=== PATIENT | female | born 1995 | race Caucasian/White ===

== ENCOUNTER 2017-10-14 14:15 | Emergency (ER) | payer SELFPAY ==
[2017-10-14] MEDS ORDERED: DIAZEPAM 5 MG TABLET PO ONE (14:45)
[2017-10-14] MEDS ORDERED: LOPERAMIDE HCL 2 MG CAPSULE PO ONE (14:53)
[2017-10-14] MEDS ORDERED: ONDANSETRON 4 MG TAB.RAPDIS PO ONE (14:53)
--- NOTE | 2017-10-14 15:15 | ER Document Report ---
ED General - General Chief Complaint: Nausea/Vomiting/Diarrhea Stated Complaint: ABDOMINAL PAIN,DIARRHEA Time Seen by Provider: 10/14/17 14:44 Mode of Arrival: Ambulatory Information source: Patient Notes: 22-year-old female with no reported past medical history presents with complaint of abdominal cramping and diarrhea that started 2 days prior to arrival. Abdominal cramping is described as intermittent, diffusely located. Patient has had 2 episodes of non-bloody nonblack diarrhea. Patient has associated nausea without vomiting. She denies sick contacts, recent antibiotic use, recent travel. Last menstrual period was October 02, 2017. Patient is currently sexually active with her and is unsure if she is . She denies any dysuria, vaginal discharge and vaginal bleeding. Patient has been one time which resulted in a miscarriage. TRAVEL OUTSIDE OF THE [place] IN LAST 30 DAYS: No - HPI Onset: Yesterday Onset/Duration: Gradual, Intermittent Quality of pain: Cramping Severity: Mild Associated symptoms: Diarrhea, Nausea. denies: Vomiting, Shortness of breath Exacerbated by: Food Relieved by: Denies Similar symptoms previously: No Recently seen / treated by doctor: No - Related Data Allergies/Adverse Reactions: No Known Allergies Allergy (Verified 10/14/17 14:42) Past Medical History - General Information source: Patient, [facility] Records - Social History Smoking Status: Current Every Day Smoker Cigarette use (# per day): Yes - 10 Chew tobacco use (# tins/day): No Smoking Education Provided: Yes - 4 minutes of smoking cessation provided Frequency of alcohol use: Rare Drug Abuse: None Lives with: Family Family History: Reviewed & Not Pertinent Patient has suicidal ideation: No Patient has homicidal ideation: No - Medical History Medical History: Negative Renal/ Medical History: Denies: Hx Peritoneal Dialysis Review of Systems - Review of Systems Notes: REVIEW OF SYSTEMS: CONSTITUTIONAL : Denies fever, chills, or sweats. Denies recent illness. Denies weight loss, recent hospitalizations. EENT: Denies visual changes, eye pain. Denies nasal or sinus congestion or discharge. Denies sore throat, oral lesions, difficulty swallowing. CARDIOVASCULAR: Denies chest pain. Denies palpitations. Denies lower extremity edema. RESPIRATORY: Denies cough, cold, or chest congestion. Denies shortness of breath, wheezing. GASTROINTESTINAL: Denies abdominal distention. Denies vomiting, Denies blood in vomitus, stools, or per rectum. Denies black, tarry stools. Denies constipation. GENITOURINARY: Denies difficulty urinating, painful urination, frequency, blood in urine, or vaginal discharge vaginal bleeding. MUSCULOSKELETAL: Denies back or neck pain or stiffness. Denies joint pain or swelling. SKIN: Denies rash, lesions or sores. HEMATOLOGIC : Denies easy bruising or bleeding. LYMPHATIC: Denies swollen glands. NEUROLOGICAL: Denies confusion or altered mental status. Denies passing out or loss of consciousness. Denies dizziness or lightheadedness. Denies headache. Denies weakness or paralysis. Denies problems difficulty with ambulation, slurred speech. Denies sensory loss, numbness, or tingling. Denies seizures. PSYCHIATRIC: Denies anxiety or stress. Denies depression, suicidal ideation, or homicidal ideation. Denies visual or auditory hallucinations. Physical Exam - Vital signs Vitals: Temp Pulse Resp BP Pulse Ox 97.9 F 82 18 138/76 H 100 10/14/17 14:21 10/14/17 14:21 10/14/17 14:21 10/14/17 14:21 10/14/17 14:21 - Notes Notes: PHYSICAL EXAMINATION: GENERAL: Well-appearing, well-nourished and in no acute distress. HEAD: Atraumatic, normocephalic. EYES: Pupils equal round and reactive to light, extraocular movements intact, conjunctiva are normal. ENT: Nares patent, oropharynx clear without exudates. Moist mucous membranes. NECK: Normal range of motion, supple without lymphadenopathy LUNGS: Breath sounds clear to auscultation bilaterally and equal. No wheezes rales or rhonchi. HEART: Regular rate and rhythm without murmurs ABDOMEN: Soft, nontender, nondistended abdomen. No guarding, no rebound. No masses appreciated. Female : deferred Musculoskeletal: Normal range of motion, no pitting or edema. No cyanosis. NEUROLOGICAL: Cranial nerves grossly intact. Normal speech, normal gait. Normal sensory, motor exams PSYCH: Normal mood, normal affect. SKIN: Warm, Dry, normal turgor, no rashes or lesions noted. Course - Re-evaluation Re-evalutation: 10/14/17 16:14 Laboratory 10/14/17 15:10 Urine HCG, Qual NEGATIVE 10/14/17 16:14 22-year-old female with no reported past medical history presents with complaint of abdominal cramping and diarrhea that started 2 days prior to arrival. Abdominal cramping is described as intermittent, diffusely located. Patient has had 2 episodes of non-bloody nonblack diarrhea. Patient has associated nausea without vomiting. She denies sick contacts, recent antibiotic use, recent travel. Last menstrual period was October 02, 2017. Patient is currently sexually active with her and is unsure if she is . She denies any dysuria, vaginal discharge and vaginal bleeding. Patient has been one time which resulted in a miscarriage. Patient was seen by myself upon arrival. Vital signs were reviewed. Patient is afebrile , normotensive and not hypoxic. Patient does not appear toxic or dehydrated. They are in no acute distress. Previous medical records and nursing notes reviewed. Patient has a benign abdominal exam. Patient was given Imodium and Zofran during her ED course. On reevaluation she states her nausea has resolved. Patient will be provided a prescription for Imodium and Zofran. HCG negative. Patient provided the opportunity to ask questions, and express concerns. Discharge instructions discussed. Patient is agreeable with discharge home. Return indications explained and discussed with the patient who displays understanding. Patient encouraged to return to the emergency department immediately with any concerns. - Vital Signs Vital signs: Temp Pulse Resp BP Pulse Ox 97.9 F 82 18 138/76 H 100 10/14/17 14:21 10/14/17 14:21 10/14/17 14:21 10/14/17 14:21 10/14/17 14:21 Discharge - Discharge Clinical Impression: Nausea, Abdominal cramping Diarrhea Qualifiers: Diarrhea type: unspecified type Qualified Code(s): R19.7 - Diarrhea, unspecified Condition: Good Disposition: HOME, SELF-CARE Instructions: Antinausea Medication ([facility]), Diarrhea, Nonspecific ([facility]) Additional Instructions: Follow up with your physician tomorrow for further care or return to the ED IMMEDIATELY if symptoms worsen or new concerns occur. If you cannot afford to follow up with your primary care physician a list of low cost clinics have been provided at the end of your discharge papers as well. Prescriptions: Loperamide HCl [Loperamide] 2 mg PO Q6H PRN #12 capsule PRN Reason: Diarrhea Ondansetron [Zofran Odt 4 mg Tablet] 1 - 2 tab PO Q4H PRN #15 tab.rapdis PRN Reason: For Nausea/Vomiting Forms: Smoking Cessation Education, Elevated Blood Pressure
[2017-10-14 16:16] VITALS: BP 110/66
== END 2017-10-14 16:15 | disposition home or self-care (01) ==
LOC: ER 14:15
DX: R11.2 Nausea with vomiting, unspecified (principal); R10.9 Unspecified abdominal pain; R19.7 Diarrhea, unspecified; F17.210 Nicotine dependence, cigarettes, uncomplicated
CPT/HCPCS: 99406; 99284; 81025; S0119

== ENCOUNTER → 2017-11-10 | Outpatient (CLI) | payer SELFPAY ==
[2017-11-12 19:45] LABS: CHLAM PCR NOT DETECTED (NOT DETECT); GON PCR NOT DETECTED (NOT DETECT)
== END ==
LOC: LAB 15:25
PROVIDERS: ATTEND Nurse Practitioner Family
DX: N91.2 Amenorrhea, unspecified (principal); R10.30 Lower abdominal pain, unspecified; R11.0 Nausea
CPT/HCPCS: 36415; 84703; 87491; 87591

== ENCOUNTER → 2018-01-04 | Outpatient (CLI) | payer OTHER ==
--- NOTE | 2018-01-04 19:33 | RADIOLOGY REPORT (SQ) ---
EXAM DESCRIPTION: KUB COMPLETED DATE/TIME: 01/04/2018 5:25 pm REASON FOR STUDY: GENERALIZED ABDOMINAL PAIN R10.84 GENERALIZED ABDOMINAL PAIN COMPARISON: None. NUMBER OF VIEWS: One view. TECHNIQUE: Supine radiographic image of the abdomen acquired. LIMITATIONS: None. FINDINGS: BOWEL GAS PATTERN: Normal bowel gas pattern. No dilated loops. CALCIFICATIONS: No suspicious calcifications. SOFT TISSUES: No gross mass or suggestion of organomegaly. HARDWARE: None in the abdomen. BONES: Spina bifida occulta at L5. OTHER: No other significant finding. IMPRESSION: Nonspecific abdomen. Spina bifida occulta. TECHNICAL DOCUMENTATION: JOB ID: [id number] [employer]- All Rights Reserved Reading location - IP/workstation name: [email or web address]
== END ==
LOC: OD 17:10
PROVIDERS: ATTEND Nurse Practitioner Family
DX: R10.84 Generalized abdominal pain (principal); Q05.9 Spina bifida, unspecified
CPT/HCPCS: 74018

== ENCOUNTER 2018-09-08 20:57 | Outpatient (CLI) | payer OTHER ==
[2018-09-08] MEDS ORDERED: RINGERS SOLUTION,LACTATED 1,000 ML IV PRN (21:42)
[2018-09-08] MEDS ORDERED: HYDROXYZINE PAMOATE 50 MG CAPSULE PO ONE (21:43)
[2018-09-08] MEDS ORDERED: HYDROXYZINE PAMOATE 50 MG CAPSULE ONE (21:48)
[2018-09-08 21:52] LABS: APPEARANCE,URINE CLEAR; BILIRUBIN,URINE NEGATIVE (NEGATIVE); COLOR,URINE YELLOW; GLUCOSE, URINE NEGATIVE (NEGATIVE); KETONES,URINE NEGATIVE (NEGATIVE); LEUKOCYTE ESTERASE,URINE LARGE (NEGATIVE); NITRITE,URINE POSITIVE (NEGATIVE); PROTEIN,URINE 30 mg/dL (NEGATIVE); URINE SPECIFIC GRAVITY 1.006; UROBILINOGEN,URINE NEGATIVE mg/dL (<2.0)
[2018-09-08 22:12] LABS: URINE AMPHETAMINES SCREEN NEGATIVE; URINE BARBITURATES SCREEN NEGATIVE; URINE COCAINE SCREEN NEGATIVE; URINE MARIJUANA (THC) SCREEN NEGATIVE; URINE METHADONE SCREEN NEGATIVE; URINE PHENCYCLIDINE SCREEN NEGATIVE
[2018-09-08 22:21] LABS: URINE BENZODIAZEPINES SCREEN NEGATIVE
[2018-09-08] MEDS ORDERED: ACETAMINOPHEN 325 MG TABLET PO ONE (22:39)
[2018-09-08] MEDS ORDERED: CEFTRIAXONE SODIUM 1,000 MG in DEXTROSE 5%-WATER 100 ML IV ONE (22:41)
[2018-09-08] MEDS ORDERED: ACETAMINOPHEN 325 MG TABLET ONE (22:45)
[2018-09-08] MEDS ORDERED: CEFTRIAXONE INJ 1000 MG VIAL ONE (22:45)
--- NOTE | 2018-09-08 22:52 | RADIOLOGY REPORT (SQ) ---
EXAM DESCRIPTION: US LIMITED COMPLETED DATE/TME: 09/08/2018 00:00 CLINICAL HISTORY: 23 years Female, cervical length 29w1d Comparison: None. TECHNIQUE/LIMITATION: Targeted OB sonogram for requested parameters only. FINDINGS: Single IUP Cardiac activity: 180-bpm. NADIA: 11.0-cm Placenta: Anterior. No demonstrated abruption or previa. Presentation: Vertex Cervical length: 3.8-cm. Closed appearance. IMPRESSION: Targeted OB sonogram for requested parameters
== END 2018-09-09 00:12 | disposition home or self-care (01) ==
LOC: LC 20:57
PROVIDERS: ATTEND Obstetrics & Gynecology
PROC: 4A1HXCZ Monitoring of Products of Conception, Cardiac Rate, External Approach (ICD-10-PCS; principal; 2018-09-08)
DX: O23.42 Unspecified infection of urinary tract in pregnancy, second trimester (principal); Z3A.29 29 weeks gestation of pregnancy
CPT/HCPCS: 87086; 81001; 80307; 76815; 59899; J0696; J7060

== ENCOUNTER 2018-10-22 17:06 | Outpatient (CLI) | payer OTHER ==
[2018-10-22 18:29] LABS: APPEARANCE,URINE CLEAR; BILIRUBIN,URINE NEGATIVE (NEGATIVE); COLOR,URINE YELLOW; GLUCOSE, URINE NEGATIVE (NEGATIVE); KETONES,URINE 20 mg/dL (NEGATIVE); LEUKOCYTE ESTERASE,URINE SMALL (NEGATIVE); NITRITE,URINE NEGATIVE (NEGATIVE); PROTEIN,URINE NEGATIVE (NEGATIVE); URINE SPECIFIC GRAVITY 1.012; UROBILINOGEN,URINE NEGATIVE mg/dL (<2.0)
[2018-10-22] MEDS ORDERED: RINGERS SOLUTION,LACTATED 1,000 ML IV PRN (18:31)
[2018-10-22] MEDS ORDERED: HYDROXYZINE PAMOATE 50 MG CAPSULE PO ONE (18:32)
[2018-10-22 18:52] LABS: URINE AMPHETAMINES SCREEN NEGATIVE; URINE BARBITURATES SCREEN NEGATIVE; URINE BENZODIAZEPINES SCREEN NEGATIVE; URINE COCAINE SCREEN NEGATIVE; URINE MARIJUANA (THC) SCREEN NEGATIVE; URINE METHADONE SCREEN NEGATIVE; URINE PHENCYCLIDINE SCREEN NEGATIVE
[2018-10-22] MEDS ORDERED: HYDROXYZINE PAMOATE 50 MG CAPSULE ONE (19:15)
--- NOTE | 2018-10-22 19:55 | Non Stress Test Report ---
Non Stress Test Datetime Report Generated by CPN: 10/22/2018 19:54 DEMOGRAPHIC EGA NST: 35.3 INDICATION Indication for Study: Other Indication for Study (NST) Other: LABOR CHECK MONITORING Monitor Explained: Monitor Explained; Test Explained; Patient Verbalized Understanding Time on Monitor: 10/22/2018 17:33 Time off Monitor: 10/22/2018 19:40 NST Duration: 127 NST INTERVENTIONS NST Interventions: PO Hydration; Reposition Patient Physician Notified NST: Dr. Emil BABY A: [id number] BABY A Movement : Present Contraction Frequency : irritibility FHR Baseline : 145 Accelerations : 15X15 Decelerations : None Variability : Moderate 6-25bpm NST Review: Meets Criteria for Reactive NST NST Review and Verified By : KIM Hernandez Results: Reactive NST REPORT Report Trigger: Send Report
== END 2018-10-22 19:51 | disposition home or self-care (01) ==
LOC: LC 17:06
PROVIDERS: ATTEND Obstetrics & Gynecology
PROC: 4A1HXCZ Monitoring of Products of Conception, Cardiac Rate, External Approach (ICD-10-PCS; principal; 2018-10-22)
DX: O47.03 False labor before 37 completed weeks of gestation, third trimester (principal); Z3A.35 35 weeks gestation of pregnancy
CPT/HCPCS: 59025; 80307; 81001

== ENCOUNTER 2018-10-28 21:14 | Outpatient (CLI) | payer OTHER ==
[2018-10-28 22:13] LABS: APPEARANCE,URINE CLEAR; BILIRUBIN,URINE NEGATIVE (NEGATIVE); COLOR,URINE YELLOW; GLUCOSE, URINE NEGATIVE (NEGATIVE); KETONES,URINE NEGATIVE (NEGATIVE); LEUKOCYTE ESTERASE,URINE MODERATE (NEGATIVE); NITRITE,URINE NEGATIVE (NEGATIVE); PROTEIN,URINE NEGATIVE (NEGATIVE); URINE SPECIFIC GRAVITY 1.008; UROBILINOGEN,URINE NEGATIVE mg/dL (<2.0)
[2018-10-28 22:29] LABS: URINE AMPHETAMINES SCREEN NEGATIVE; URINE BARBITURATES SCREEN NEGATIVE; URINE BENZODIAZEPINES SCREEN NEGATIVE; URINE COCAINE SCREEN NEGATIVE; URINE MARIJUANA (THC) SCREEN NEGATIVE; URINE METHADONE SCREEN NEGATIVE; URINE PHENCYCLIDINE SCREEN NEGATIVE
--- NOTE | 2018-10-28 22:39 | Non Stress Test Report ---
Non Stress Test Datetime Report Generated by CPN: 10/28/2018 22:39 DEMOGRAPHIC EGA NST: 36.2 MONITORING Monitor Explained: Monitor Explained; Test Explained; Patient Verbalized Understanding Time on Monitor: 10/28/2018 21:38 Time off Monitor: 10/28/2018 22:26 NST Duration: 48 NST INTERVENTIONS NST Interventions: None Physician Notified NST: Dr. Acevedo BABY A: [id number] BABY A Movement : Present Contraction Frequency : irregular FHR Baseline : 140 Accelerations : 15X15 Decelerations : None Variability : Moderate 6-25bpm NST Review: Meets Criteria for Reactive NST NST Review and Verified By : Barry Prado RN NST Results: Reactive NST REPORT Report Trigger: Send Report
== END 2018-10-28 22:32 | disposition home or self-care (01) ==
LOC: LC 21:14
PROVIDERS: ATTEND Obstetrics & Gynecology
PROC: 4A1HXCZ Monitoring of Products of Conception, Cardiac Rate, External Approach (ICD-10-PCS; principal; 2018-10-28)
DX: O47.03 False labor before 37 completed weeks of gestation, third trimester (principal); Z3A.36 36 weeks gestation of pregnancy
CPT/HCPCS: 59025; 80307; 81001

== ENCOUNTER 2018-11-14 10:54 | Inpatient (IN) | payer OTHER ==
[2018-11-14] MEDS ORDERED: OXYTOCIN 10 UNIT/ML VIAL ONE (11:14)
[2018-11-14] MEDS ORDERED: LIDOCAINE 1% INJ-PF (10 MG/ML) 30 ML SDV ONE (11:14)
[2018-11-14] MEDS ORDERED: OXYTOCIN/NORMAL SALINE 20 UNIT/1,000 ML RTUINJ ONE (11:14)
[2018-11-14] MEDS ORDERED: MISOPROSTOL 0.2 MG TABLET ONE (11:14)
--- NOTE | 2018-11-14 11:25 | Admission Physical ---
Datetime Report Generated by CPN: 11/14/2018 11:24 CURRENT ADMISSION Chief Complaint: Suspected Ruptured Membranes Indication for Induction: Not Applicable Admit Impression : Term, Intrauterine ; Active Labor; Ruptured Membranes Admit Impression- Other: SROM at [facility] Admit Plan: Admit to Unit; Initiate Labor Protocol ALLERGIES Medication Allergies: No Medication Allergies: No Known Allergies (10/22/2018) OBSTETRICAL HISTORY EDC: 11/23/2018 00:00 : 2 Para: 0 Term: 0 : 0 SAB: 1 IAB: 0 Livin Cesareans: 0 PHYSICAL EXAM General: Normal HEENT: Normal Neurologic: Normal Thyroid: Deferred Heart: Normal Lungs: Normal Breast: Deferred Back: Normal Abdomen: Normal Genitourinary Exam: Normal Extremities: Normal DTRs: Normal Pelvic Type: Adequate Vital Signs: Reviewed; Within Normal Limits MEMBRANES Membranes: Ruptured FETUS A EGA: 38.5 Monitoring: External US FHR- Baseline: 150 Variability: Moderate 6-25bpm Accelerations: 15X15 FHR Category: Category I Presentation: Vertex Admit Comment: Late onset care at 20 wks. Hx asthma Anxiety, depression, panic attacks Snapping hip syndrome, right hip GDM-on Glyburide High weight gain-60lbs Antepartum records available INFORMED CONSENT Assignment: Sage Sauer MD Signature: with User ID: Lillie : with User ID: [email or web address] : I personally evaluated and examined the patient in conjunction with the MLP and agree with the assessment, treatment plan and disposition.
[2018-11-14] MEDS ORDERED: PROMETHAZINE HCL INJ 25 MG/1 ML VIAL ONE (11:56)
[2018-11-14] MEDS ORDERED: NALBUPHINE HCL INJ 10 MG/1 ML AMPULE ONE (11:56)
[2018-11-14] MEDS ORDERED: RINGERS SOLUTION,LACTATED 1,000 ML IV ONE (13:17)
[2018-11-14] MEDS ORDERED: RINGERS SOLUTION,LACTATED 1,000 ML IV PRN (13:17)
[2018-11-14 13:41] LABS: ABSOLUTE MONOCYTES (AUTO) 0.5 10^3/uL (0.1-1.4); ABSOLUTE NEUT (AUTO) 8.1 10^3/uL (1.7-8.2); BASOPHILS % (AUTO) 0.3 % (0-2); EOSINOPHILS % (AUTO) 0.2 % (0-6); HEMOGLOBIN 10.2 g/dL (12.0-15.5); LYMPHOCYTES % (AUTO) 18.5 % (13-45); MEAN CORPUSCULAR HEMOGLOBIN 25.2 pg (27.0-33.4); MEAN CORPUSCULAR HGB CONC 32.8 g/dL (32.0-36.0); MEAN CORPUSCULAR VOLUME 77 fl (80-97); PLATELET COUNT 173 10^3/uL (150-450); RED BLOOD COUNT 4.03 10^6/uL (3.72-5.28); RED CELL DISTRIBUTION WIDTH 14.7 % (11.5-14.0); TOTAL CELLS COUNTED % (AUTO) 100 %; WHITE BLOOD COUNT 10.6 10^3/uL (4.0-10.5)
[2018-11-14] MEDS ORDERED: ZOLPIDEM TARTRATE 5 MG TABLET PO PRN (17:01)
[2018-11-14] MEDS ORDERED: DIPHENHYDRAMINE HCL 25 MG CAPSULE PO PRN (17:01)
[2018-11-14] MEDS ORDERED: ACETAMINOPHEN 650 MG SUPP.RECT PR PRN (17:01)
[2018-11-14] MEDS ORDERED: GLYCERIN/WITCH HAZEL LEAF 1 EACH MED..WIPE TP PRN (17:01)
[2018-11-14] MEDS ORDERED: BENZOCAINE/MENTHOL AEROSOL SPRAY 56 ML TOP PRN (17:01)
[2018-11-14] MEDS ORDERED: NA PHOS,M-B/NA PHOS,DI-BA (ADULT) 133 ML ENEMA PR PRN (17:01)
[2018-11-14] MEDS ORDERED: PROMETHAZINE HCL 25 MG SUPP.RECT PR PRN (17:01)
[2018-11-14] MEDS ORDERED: MAGNESIUM HYDROXIDE SUSP 30 ML UDCUP PO PRN (17:01)
[2018-11-14] MEDS ORDERED: ACETAMINOPHEN WITH CODEINE #3 TABLET PO PRN ×2 (17:01)
[2018-11-14] MEDS ORDERED: PROMETHAZINE HCL INJ 25 MG/1 ML VIAL IV PRN (17:01)
[2018-11-14] MEDS ORDERED: MEASLES,MUMPS&RUBELLA VACC/PF 0.5 ML VIAL SUBCUT PRN (17:01)
[2018-11-14] MEDS ORDERED: DIPH/PERTUSS(ACELL)/TETANUS VAC/PF 0.5 ML SYR (>=10YO) IM PRN (17:01)
[2018-11-14] MEDS ORDERED: DIBUCAINE 1% OINTMENT 56 GM TP PRN (17:01)
[2018-11-14] MEDS ORDERED: PSEUDOEPHEDRINE HCL 30 MG TABLET PO PRN (17:01)
[2018-11-14] MEDS ORDERED: OXYTOCIN/NORMAL SALINE 20 UNIT/1,000 ML RTUINJ IV PRN (17:01)
[2018-11-14] MEDS ORDERED: PROMETHAZINE HCL 25 MG TABLET PO PRN (17:01)
--- NOTE | 2018-11-14 17:47 | Delivery Summary ---
Del Sum A-C Datetime Report Generated by CPN: 11/14/2018 17:46 DELIVERY PERSONNEL DELIVERY PERSONNEL: [id number] Delivery Doctor:: Gloria Camilo CNM Labor and Delivery Nurse:: Myah Moore RN Labor and Delivery Nurse:: Abby Piedra RN Tax Services Manager:: Rosalie Hennessy RN Spinning Frame Changer/CARDIOVASCULAR SONOGRAPHER: Jessica Tong CNA II Spinning Frame Changer/CARDIOVASCULAR SONOGRAPHER: Antony Jacobson, CORE SHAPER TOP Additional Personnel: : Jimmy Junior RN MATERNAL INFORMATION Delivery Anesthesia: None Medications After Delivery: Pitocin Bolus-Please Comment Meds After Delivery Comment: Pitocin 20 units/1000 ml NSS Delivery QBL Comment: 150 Complication Details: due to delivery at same time Dr. Sauer came in to deliver placenta Provider Comments: Called to room 8 for delivery. Vertex at perineum. Slight molding. Poor pushing effort. of vertex, then 2 min 15 sec of shoulder dystocia, with full delivery of body at 1603. Very poor maternal effort w pushing. Quan, attempt to rotate shoulders, and suprapubic pressure used to facilitate delivery. Baby made 1 weak cry. Cord clamped and cut by CNM, then placed in warmer-nursery staff present to stimulate and dry baby. CNM left room to do delivery in Room 2. Dr Sauer arrived and delivered placenta per his verbal report. Perineum intact per his report. LABOR SUMMARY EDC: 11/23/2018 00:00 No. Babies in Womb: 1 Attempted: No Labor Anesthesia: None LABOR INFORMATION Reason for Induction: Not Applicable Onset of Labor: 11/14/2018 11:31 Complete Dilatation: 11/14/2018 15:33 Oxytocin: N/A Group B Beta Strep: negative Antibiotics # of Doses: 0 Steroids Given: None Reason Steroids Not Administered: Not Applicable MEMBRANES Membranes Rupture Method: Spontaneous Rupture of Membranes: 11/14/2018 10:00 Length of Rupture (hr): 5.75 Amniotic Fluid Color: Clear Amniotic Fluid Amount: Small Amniotic Fluid Odor: Normal STAGES OF LABOR Stage 1 hr: 4 Stage 1 min: 2 Stage 2 hr: 0 Stage 2 min: 12 Stage 3 hr: 0 Stage 3 min: 18 Total Time in Labor hr: 4 Total Time in Labor min: 32 VAGINAL DELIVERY Episiotomy: None Laceration #1: None Laceration Extension #1: N/A Laceration Repair: Not Applicable Sponge Count Correct: N/A CSECTION DELIVERY Primary Indication: N/A Secondary Indication: N/A BABY A INFORMATION Delivery Date/Time: 11/14/2018 15:45 Method of Delivery: Vaginal Born in Route : No : N/A Forceps: N/A Vacuum Extraction: N/A Shoulder Dystocia : Yes SHOULDER DYSTOCIA BABY A Delivery of Head: 11/14/2018 15:43 Time Head to Delivery : 2.0 1st Intervention to Resolve: Gentle Attempt at Traction, Assisted by Maternal Expulsive Efforts 2nd Intervention to Resolve: McRobert's Maneuver 3rd Intervention to Resolve: Suprapubic Pressure Arm Under Symphisis at Del: Left PRESENTATION/POSITION BABY A Presentation: Cephalic Cephalic Presentation: N/A Vertex Position: Right Occipital Anterior Breech Presentation: N/A PLACENTA INFORMATION BABY A Placenta Delivery Time : 11/14/2018 16:03 Placenta Method of Delivery: Spontaneous Placenta Status: Delivered SCORES BABY A Heart Rate 1 min: >100 bpm Resp Effort 1 min: Slow, Irregular Reflex Irritability 1 min: Grimace Muscle Tone 1 min: Flaccid Color 1 min: Blue/Pale SCORE 1 MIN: 4 Heart Rate 5 min: >100 bpm Resp Effort 5 min: Slow, Irregular Reflex Irritability 5 min: Grimace Muscle Tone 5 min: Some Flexion of Extremities Color 5 min: Body [place], Extremities Blue Resuscitation Effort 5 min: Tactile Stimulation; Oxygen; PPV/NCPAP SCORE 5 MIN: 6 Heart Rate 10 min: >100 bpm Resp Effort 10 min: Good Cry Reflex Irritability 10 min: Cough or Sneeze or Pulls Away Muscle Tone 10 min: Some Flexion of Extremities Color 10 min: Body [place], Extremities Blue SCORE 10 MIN: 8 INFORMATION BABY A Gestational Age at Delivery: 38.5 Gestational Status: Early Term- 37- 38.6 Weeks Infant Outcome : Liveborn Infant Condition : Fair Infant Sex: Female IDENTIFICATION BABY A Infant Verification Date/Time: 11/14/2018 15:58 ID Band Number: [id number] Mother's Name Verified: Yes RN Verifying Infant: , RN and Chelle, RN WEIGHT/LENGTH BABY A Birthweight (gm): 3949 Weight (lb): 8 Infant Weight (oz): 11 Infant Length (in): 21.50 Length (cm): 54.61 CORD INFORMATION BABY A No. Cord Vessels: 3 Nuchal Cord : N/A Cord Blood Taken: Yes-For Storage (Mom's Blood type +) ASSESSMENT BABY A Skin to Skin: No SIGNATURES Assignment: Sage Sauer MD Signature: with User ID: Lillie : with User ID: Lillie : I personally evaluated and examined the patient in conjunction with the MLP and agree with the assessment, treatment plan and disposition.
[2018-11-14] MEDS: DOCUSATE SODIUM 100 MG CAPSULE PO SCH (19:04)
[2018-11-14] MEDS: FERROUS SULFATE 325 MG TABLET PO SCH (19:04)
[2018-11-14] MEDS: IBUPROFEN 800 MG TABLET PO SCH (21:51)
[2018-11-14] MEDS: FAMOTIDINE 20 MG TABLET PO SCH (21:51)
[2018-11-15 01:01] LABS: APPEARANCE,URINE SLIGHTLY-CLOUDY; BILIRUBIN,URINE NEGATIVE (NEGATIVE); COLOR,URINE RED; GLUCOSE, URINE NEGATIVE (NEGATIVE); KETONES,URINE NEGATIVE (NEGATIVE); LEUKOCYTE ESTERASE,URINE SMALL (NEGATIVE); NITRITE,URINE NEGATIVE (NEGATIVE); PROTEIN,URINE 100 mg/dL (NEGATIVE); URINE SPECIFIC GRAVITY 1.014; UROBILINOGEN,URINE NEGATIVE mg/dL (<2.0)
[2018-11-15 01:47] LABS: URINE AMPHETAMINES SCREEN NEGATIVE; URINE BARBITURATES SCREEN NEGATIVE; URINE BENZODIAZEPINES SCREEN NEGATIVE; URINE COCAINE SCREEN NEGATIVE; URINE MARIJUANA (THC) SCREEN NEGATIVE; URINE METHADONE SCREEN NEGATIVE; URINE PHENCYCLIDINE SCREEN NEGATIVE
[2018-11-15] MEDS: IBUPROFEN 800 MG TABLET PO SCH ×3 (06:16→21:11)
[2018-11-15 09:21] LABS: HEMATOCRIT 24.9 % (36.0-47.0); MEAN CORPUSCULAR HEMOGLOBIN 24.9 pg (27.0-33.4); MEAN CORPUSCULAR HGB CONC 32.2 g/dL (32.0-36.0); MEAN CORPUSCULAR VOLUME 77 fl (80-97); PLATELET COUNT 150 10^3/uL (150-450); RED BLOOD COUNT 3.22 10^6/uL (3.72-5.28); WHITE BLOOD COUNT 12.1 10^3/uL (4.0-10.5)
[2018-11-15] MEDS: FERROUS SULFATE 325 MG TABLET PO SCH ×2 (09:59→17:06)
[2018-11-15] MEDS: PRENATAL VITAMIN W DHA CAPSULE PO SCH (09:59)
[2018-11-15] MEDS: FAMOTIDINE 20 MG TABLET PO SCH ×2 (10:00→21:12)
[2018-11-15] MEDS: DOCUSATE SODIUM 100 MG CAPSULE PO SCH ×2 (10:01→17:05)
[2018-11-15] MEDS: SENNOSIDES/DOCUSATE 8.6-50 MG 1 EACH TABLET PO SCH (10:01)
--- NOTE | 2018-11-15 13:55 | PDOC PROGRESS REPORT ---
Subjective-OB Progress Note for:: 11/15/18 Subjective: reports bleeding slowing, pain controlled with current meds, denies needs Physical Exam (OB) Vital Signs: Temp Pulse Resp BP Pulse Ox 98.5 F 102 H 17 144/80 H 98 11/14/18 19:35 11/14/18 19:35 11/14/18 19:35 11/14/18 19:35 11/14/18 19:35 Intake & Output 11/14/18 11/15/18 11/16/18 06:59 06:59 06:59 Intake Total 650 Balance 650 Weight 106.1 kg - Abdomen Description: Soft, Round Hernia Present: No Fundal Description: Firm, Midline Fundal Height: u/u - u/2 - Abdominal Distension: No distension Tenderness: Nontender - Extremities Lower extremities: Thad's sign - neg Calf: Normal, Nontender Objective-Diagnostic Laboratory: 11/15/18 08:15 11/14/18 11/14/18 11/15/18 00:25 13:29 08:15 WBC 12.1 H RBC 3.22 L Hgb 8.0 L D Hct 24.9 L MCV 77 L MCH 24.9 L MCHC 32.2 RDW 15.0 H Plt Count 150 Urine Color RED Urine Appearance SLIGHTLY-CLOUDY Urine pH 6.0 Ur Specific [place] 1.014 Urine Protein 100 H Urine Glucose (UA) NEGATIVE Urine Ketones NEGATIVE Urine Blood LARGE H Urine Nitrite NEGATIVE Ur Leukocyte Esterase SMALL H Blood Type A POSITIVE Antibody Screen NEGATIVE Assessment and Plan(PN) - Assessment and Plan (1) Shoulder dystocia during labor and delivery, delivered Is this a current diagnosis for this admission?: Yes - Time Spent with Patient Time with patient: Less than 15 minutes Medications reviewed and adjusted accordingly: Yes - Disposition Anticipated Discharge: Home Within: within 24 hours
[2018-11-16] MEDS: IBUPROFEN 800 MG TABLET PO SCH ×2 (06:18→14:54)
[2018-11-16 09:20] VITALS: BP 146/79
[2018-11-16] MEDS: FAMOTIDINE 20 MG TABLET PO SCH (10:59)
[2018-11-16] MEDS: DOCUSATE SODIUM 100 MG CAPSULE PO SCH (10:59)
[2018-11-16] MEDS: PRENATAL VITAMIN W DHA CAPSULE PO SCH (10:59)
[2018-11-16] MEDS: FERROUS SULFATE 325 MG TABLET PO SCH (10:59)
[2018-11-16] MEDS: SENNOSIDES/DOCUSATE 8.6-50 MG 1 EACH TABLET PO SCH (10:59)
--- NOTE | 2018-11-16 12:05 | PDOC DISCHARGE SUMMARY ---
Final Diagnosis Discharge Date: 11/16/18 - Final Diagnosis (1) Shoulder dystocia during labor and delivery, delivered Is this a current diagnosis for this admission?: Yes (2) Anxiety Is this a current diagnosis for this admission?: Yes (3) Anemia Is this a current diagnosis for this admission?: Yes (4) Vaginal delivery Is this a current diagnosis for this admission?: Yes Discharge Data - Discharge Medication Home Medications: 95/Iron Fum/Folic/Dha [ + Dha Combo Pack] 1 tab-cap PO DAILY 09/08/18 Ferrous Sulfate [Iron] 1 tab PO DAILY 10/22/18 Procedures: NST Intrapartum Procedure(s): Spontaneous Vaginal Delivery - Diagnosis Test Laboratory: Temp Pulse Resp BP Pulse Ox 97.8 F 109 H 17 146/79 H 97 11/16/18 11:15 11/16/18 11:15 11/16/18 11:15 11/16/18 08:02 11/16/18 11:15 11/14/18 11/14/18 11/15/18 00:25 13:29 08:15 RBC 4.03 3.22 L Hgb 10.2 L 8.0 L D Hct 31.0 L 24.9 L Urine Opiates Screen NEGATIVE - Discharge information/Instructions Discharge Activity: Balance Activity w/Rest, Pelvic Rest Discharge Diet: Regular Disposition: HOME, SELF-CARE Follow up with: [facility] in: 1, Weeks - BP check and depression screen
== END 2018-11-16 16:55 | disposition home or self-care (01) | DRG 807 ==
LOC: LR 10:54 → 2S 18:16
PROVIDERS: ADMIT Obstetrics & Gynecology Gynecology; ATTEND Obstetrics & Gynecology Gynecology
PROC: 10E0XZZ Delivery of Products of Conception, External Approach (ICD-10-PCS; principal; 2018-11-14)
DX: O24.425 Gestational diabetes mellitus in childbirth, controlled by oral hypoglycemic drugs (principal); Z37.0 Single live birth; O99.344 Other mental disorders complicating childbirth; O66.0 Obstructed labor due to shoulder dystocia; F41.9 Anxiety disorder, unspecified; F32.9 Major depressive disorder, single episode, unspecified; Z3A.38 38 weeks gestation of pregnancy; O99.02 Anemia complicating childbirth; D64.9 Anemia, unspecified; M24.851 Other specific joint derangements of right hip, not elsewhere classified; O99.89 Other specified diseases and conditions complicating pregnancy, childbirth and the puerperium
CPT/HCPCS: 36415; 80307; 81005; 85025; 85027; 86592; 86850; 86900; 86901; J2300; J2550; J2590; J3490